=== PATIENT | male | born 1985 | race Hispanic/Latino ===

== ENCOUNTER 2017-06-01 15:49 | Emergency (ER) | payer OTHER ==
[~2017-06-01] VITALS: Ht 167.6 cm; Wt 108.6 kg
[2017-06-01 16:30] LABS: BASOPHIL COUNT 0.1 K/uL (0-0.1); EOSINOPHIL (%) 0 % (0-5); HEMATOCRIT 46.4 % (38.0-50.0); IMMATURE GRANULOCYTE (%) 0.7 % (0.0-0.7); IMMATURE GRANULOCYTE COUNT 0.2 K/uL; LYMPHOCYTE COUNT 1.7 K/uL (1.0-2.8); MCHC 33.4 G/DL (30.0-36.0); MCV 89.9 FL (86-99); MEAN PLAT.VOLUME 10.2 uM^3 (9.0-12.4); MONOCYTE (%) 7.1 % (3-12); MONOCYTE COUNT 1.7 K/uL (0-0.8); NEUTROPHIL (%) 84.6 % (45-76); PLATELET COUNT 267 K/uL (156-360); RBC DIS.WIDTH-CV 14.4 % (11.8-14.6); RBC DIS.WIDTH-SD 47.6 % (39-53); RED BLOOD COUNT 5.16 M/uL (4.00-5.50); WHITE BLOOD COUNT 23.6 K/uL (4.1-10.2)
[2017-06-01 16:36] LABS: INTER. NORMALIZED RATIO 1.4; PROTHROMBIN TIME 16.2 SEC (10.2-12.9)
[2017-06-01 16:38] LABS: CHLORIDE 100 mEq/L (99-109); POTASSIUM 5.5 mEq/L (3.7-5.4); SODIUM 133 mEq/L (136-147)
[2017-06-01 16:41] LABS: GLUCOSE 131 mg/dL (70-99)
[2017-06-01 16:42] LABS: ANION GAP 12 MEQ/L (2-14)
[2017-06-01 16:43] LABS: TOTAL BILIRUBIN 1.9 mg/dL (0.0-1.0)
[2017-06-01 16:44] LABS: ALKALINE PHOSPHATASE 47 IU/L (3-129); GFR ESTIMATE (CALCULATED) > 59 mL/min/
[2017-06-01 16:45] LABS: UREA NITROGEN (BUN) 14 mg/dL (9-23)
[2017-06-01 18:55] LABS: TROP-I INTERPRETATION NEGATIVE; TROPONIN-I 0.08 ng/mL (0.0-0.30)
[2017-06-01 19:58] LABS: ADD MIUA? YES; BILIRUBIN NEGATIVE; BLOOD SMALL; COLOR YELLOW ((YELLOW)); GLUCOSE (STRIP) NEGATIVE; KETONES NEGATIVE; LEUKOCYTES NEGATIVE; NITRITE NEGATIVE; PROTEIN (STRIP) NEGATIVE; SPECIFIC GRAVITY 1.031 (1.000-1.030); UROBILINOGEN 0.2 MG/DL (0.2-1.0)
[2017-06-01 20:16] LABS: BACTERIA RARE /HPF; EPITHELIAL CELLS NONE SEEN /HPF; HYALINE CASTS 0-5 /LPF; MUCUS NONE SEEN /LPF; RED BLOOD CELLS 0-5 /HPF (0-5); WHITE BLOOD CELLS 0-5 /HPF (0-5)
[2017-06-01 22:27] VITALS: BP 115/87
== END 2017-06-01 22:29 | disposition short-term general hospital (02) ==
LOC: EME 15:49 → EDBD 15:49 → EME 15:49
PROVIDERS: Emergency Medicine
DX: I26.99 Other pulmonary embolism without acute cor pulmonale (principal); J45.909 Unspecified asthma, uncomplicated; Z87.891 Personal history of nicotine dependence
CPT/HCPCS: 71010; 71275; 80053; 81003; 83605; 83880; 84484; 85025; 85610; 85730; 86850; 86900; 86901; 87040; 87086; 93005; 94002; 94640; 94640 76; 99281; 99285; J2543; J3370